=== PATIENT | male | born 1985 | race Two or more races ===

== ENCOUNTER 2025-06-12 17:48 | Emergency (ER) | payer SELFPAY ==
[~2025-06-12] VITALS: Ht 177.8 cm; Wt 73.0 kg
[2025-06-12 17:51] VITALS: O2SAT 99
[2025-06-12] MEDS: IBUPROFEN 600MG TABLET PO ONE (18:05)
[2025-06-12] MEDS ORDERED: IBUP-2029 MT (19:04)
[2025-06-12] MEDS: HYDROCODONE/ACETAMINOPHEN 5/325MG TABLET PO ONE (19:10)
[2025-06-12 21:59] VITALS: BP 123/69; PULSE 59; RESP 18; TEMP 36.6; O2SAT 99
== END 2025-06-12 22:01 | disposition home or self-care (01) ==
LOC: ER 17:48
DX: S92.002A Unspecified fracture of left calcaneus, initial encounter for closed fracture (principal); X58.XXXA Exposure to other specified factors, initial encounter; Y93.39 Activity, other involving climbing, rappelling and jumping off; Y92.89 Other specified places as the place of occurrence of the external cause; Y99.8 Other external cause status
CPT/HCPCS: 29515; 73610; 99283